=== PATIENT | female | born 1925 | race Caucasian/White ===

== ENCOUNTER 2017-01-18 10:12 | Emergency (ER) | payer MEDICARE, OTHER, BC ==
[2017-01-18 10:28] VITALS: TEMP 97.9; BMI 26.6
--- NOTE | 2017-01-18 11:09 | PDOC ---
Attending Attestation - Resident Resident Name: Citlaly Perezyazandylon - HPI HPI: 01/18/17 15:05 89 y/o female with h/o breast cancer and a history of lower extremity swelling in the past. Presents to ED requesting sonogram to r/o dvt of lower extremity 01/18/17 15:06 Pt seen in conjunction with the student, labs and sonogram reviewed, - Physicial Exam PE: 01/18/17 15:08 Pt is stable for dc home with out pt f/u with pcp, return to ED for trouble breathing, sob, pain in leg or as needed - Medical Decision Making 01/18/17 16:08 pt with no dvt, nl labs, pt to f/u with pcp, return to ED as needed, elevate leg at rest, return to ED for chest pain, sob, inc swelling of leg or as needed
--- NOTE | 2017-01-18 11:25 | PDOC ---
History of Present Illness - General Chief Complaint: Redness To Affected Area Stated Complaint: SWOLLEN LEG Time Seen by Provider: 01/18/17 11:08 History Source: Patient, Family Exam Limitations: Dementia (Patient able to give decent HPI but unable to ) - History of Present Illness Initial Comments: 01/18/17 12:38 89 year old female with history of dementia, breast cancer (s/p lumpectomy on tamoxifen), questionable LLE DVT, chronic LLE edema, HTN, urinary incontinence, and HLD presenting with 3 day history of worsening LLE swelling. She has history of a blockage in the LLE in the past but unsure of the exact diagnosis. She states that she was swimming a few weeks ago and noticed increased swelling in her leg after getting out of the pool. The swelling remained roughly stable but acutely worsened over the last few days. A physician friend of hers recommended a scan of her left leg so she came in today. She denies pain in the left lower extremity, but has had some difficulty ambulating over the last few days. Denies fevers, chest pain, nausea vomiting, GI or symptoms (urinary incontinence at baseline). She is not on any blood thinners and takes her other medications as prescribed. Her PCP is Dr. Lazar. Past History - Past Medical History Allergies/Adverse Reactions: Allergies Allergy/AdvReac Type Severity Reaction Status Date / Time No Known Drug Allergies Allergy Verified 01/18/17 10:24 Home Medications: Ambulatory Orders Gabapentin 300 mg PO DAILY 02/14/14 Simvastatin [Zocor -] 20 mg PO HS 02/14/14 Aspirin [Aspirin EC] 81 mg PO BID 08/04/14 Amoxicillin - [Amoxicillin 875mg Tablet -] 875 mg PO BID 01/18/17 Lisinopril [Prinivil] 10 mg PO BID 01/18/17 Memantine HCl [Namenda -] 10 mg PO BID 01/18/17 Mirabegron [Myrbetriq] 25 mg PO DAILY 01/18/17 Mirtazapine 7.5 mg PO HS 01/18/17 Quetiapine Fumarate [Seroquel -] 25 mg PO HS 01/18/17 Tamoxifen Citrate 20 mg PO DAILY 01/18/17 Disorders: Yes (RETENTION & OVER FLOW) HTN: Yes Hypercholesterolemia: Yes Other medical history: urinary inctontenance - Surgical History Abdominal Surgery: Yes (OVARY REMOVED) - Psycho/Social/Smoking Cessation Hx Anxiety: No Suicidal Ideation: No Smoking Status: No Smoking History: Never smoked Have you smoked in the past 12 months: No Number of Cigarettes Smoked Daily: 0 If you are a former smoker, when did you quit?: 30YRS AGO Information on smoking cessation initiated: No Hx Alcohol Use: No Drug/Substance Use Hx: No Substance Use Type: None Review of Systems - Review of Systems Constitutional: No: Chills, Diaphoresis, Fever, Loss of Appetite HEENTM: No: Blurred Vision, Cataracts Respiratory: No: Cough, Shortness of Breath, SOB with Exertion, Productive cough Cardiac (ROS): Yes: Edema (Left lower extremity edema), Lightheadedness. No: Chest Pain, Irregular Heart Rate, Palpitations, Chest Tightness ABD/GI: No: Abdominal Distended, Blood Streaked Bowels, Constipated, Diarrhea, Nausea, Poor Appetite : Yes: Incontinence Musculoskeletal: No: Back Pain, Gout Integumentary: Yes: Erythema. No: Bruising, Lesions (Left Lower Extremity Erythema) Neurological: Yes: Unsteady Gait, Other (Falls). No: Headache, Paresthesia Psychiatric: No: Change in Appetite *Physical Exam - Vital Signs Last Vital Signs Temp Pulse Resp BP Pulse Ox 97.9 F 85 16 134/94 100 01/18/17 10:24 01/18/17 10:24 01/18/17 10:24 01/18/17 10:24 01/18/17 10:24 - Physical Exam General Appearance: Yes: Nourished, Appropriately Dressed. No: Apparent Distress HEENT: positive: EOMI, CLAUDIA, Normal Voice Respiratory/Chest: positive: Lungs Clear, Normal Breath Sounds. negative: Chest Tender, Respiratory Distress, Accessory Muscle Use, Rales, Rhonchi, Stridor, Wheezing Cardiovascular: positive: Regular Rhythm, Regular Rate, Murmur (Holosystolic murmur) Gastrointestinal/Abdominal: positive: Normal Bowel Sounds, Flat, Soft. negative : Tender, Organomegaly Musculoskeletal: positive: Other (Left lower extremity swelling and erythema without drainage, induration, or other sign of infection. Fulls sensation with palpable left DPs and PTs slightly weaker then right side.) Extremity: positive: Normal Capillary Refill Integumentary: positive: Normal Color, Dry, Warm, Erythema (Left Lower Extremity Erythema) Neurologic: positive: Fully Oriented, Alert, Other (Word finding difficulty with poor recall) ED Treatment Course - LABORATORY CBC & Chemistry Diagram: 01/18/17 12:10 01/18/17 12:10 Medical Decision Making - Critical Care Time Total Critical Care Time (minutes): 30 Critical Care Statement: The care of this patient involved high complexity decision making to prevent further life threatening deterioration of the patient 's condition and/or to evalute & treat vital organ system(s) failure or risk of failure. - Medical Decision Making 01/18/17 13:12 89 year old female with chronic left lower extremity edema presenting with acutely worsened left lower extremity edema. She has questionable history of DVT in the past in the same extremity, this does not appear to be any sort of infection. Has full sensation, motor function, and pulses bilaterally across Lower extremities so compartment syndrome and general neuro-vascular compromise are less likely. Will get CBC, BMP, PT/INR, and LLE Doppler. 01/18/17 13:43 Labs WNL, Doppler not showing DVT. This is most likely along the spectrum of her chronic venous insufficiency in her left lower extremity. Touched base with Dr. Rodrigues (covering for Dr. Segovia) at 13:35 and updated him on the state of the patient. He was OK with sending patient home. Will send home with compression stockings and education on elevation of left lower extremity when patient is not ambulating. *DC/Admit/Observation/Transfer Diagnosis at time of Disposition: Edema of left lower extremity - Discharge Dispostion Disposition: HOME Condition at time of disposition: Improved Admit: No - Referrals Referrals: Easton Waddell MD [Primary Care Provider] - - Patient Instructions Printed Discharge Instructions: DI for Peripheral Edema, Unilateral Additional Instructions: You came in for swelling of your left lower leg. We scanned your leg and did not find a clot. We believe this is probably a long standing issue that you should discuss further with your primary care physician. We recommend that you wear a compression stocking on that side to help with the fluid. If you notice new weakness, numbness, or tingling in that leg specifically then please return to the ED to have it evaluated. Print Language: LUXEMBOURGISH - Attestations Physician Attestion: 01/18/17 13:11 I, Dr. Becky Perez, attest that this document has been prepared under my direction and personally reviewed by me in its entirety. I further attest, that it accurately reflects all work, treatment, procedures and medical decision -making performed by me.
[2017-01-18 12:28] LABS: MCH 30.2 pg (25.7-33.7); MCHC 32.6 g/dl (32.0-36.0); MEAN CELL VOLUME 92.6 fl (80-96); MEAN PLT VOLUME 8.9 fl (7.5-11.1); PLATELET COUNT 122 K/MM3 (134-434); RDW 14.6 % (11.6-15.6); WHITE BLOOD COUNT 8.1 K/mm3 (4.0-10.0)
[2017-01-18 12:42] LABS: INR 1.09 (0.82-1.09)
[2017-01-18 12:51] LABS: ANION GAP 5 (8-16); CO2 29 mmol/L (21-32); CREATININE 0.9 mg/dL (0.55-1.02); GLUCOSE,RANDOM 90 mg/dL (74-106)
[2017-01-18 14:19] VITALS: BP 165/67; PULSE 64
== END 2017-01-18 14:19 | disposition home or self-care (01) ==
LOC: JER 10:12
DX: R60.0 Localized edema (principal); I10 Essential (primary) hypertension; E78.00 Pure hypercholesterolemia, unspecified; N39.498 Other specified urinary incontinence; Z85.3 Personal history of malignant neoplasm of breast
CPT/HCPCS: 36415; 80048; 85027; 85610; 93971-TC; 99283-25

== ENCOUNTER 2017-03-08 18:33 | Emergency (ER) | payer MEDICARE, BC, OTHER ==
[2017-03-08 18:58] VITALS: BP 146/100; PULSE 90; TEMP 98.6; BMI 26.6
--- NOTE | 2017-03-08 18:58 | PDOC ---
History of Present Illness - General Chief Complaint: Injury Stated Complaint: FALL Time Seen by Provider: 03/08/17 18:57 Past History - Past Medical History Allergies/Adverse Reactions: Allergies Allergy/AdvReac Type Severity Reaction Status Date / Time No Known Drug Allergies Allergy Verified 03/08/17 18:42 Home Medications: Ambulatory Orders Gabapentin 300 mg PO DAILY 02/14/14 Simvastatin [Zocor -] 20 mg PO HS 02/14/14 Aspirin [Aspirin EC] 81 mg PO BID 08/04/14 Lisinopril [Prinivil] 10 mg PO BID 01/18/17 Quetiapine Fumarate [Seroquel -] 25 mg PO HS 01/18/17 Disorders: Yes (RETENTION & OVER FLOW) HTN: Yes Hypercholesterolemia: Yes Other medical history: ARTHRITIS. - Surgical History Abdominal Surgery: Yes (OVARY REMOVED) - Psycho/Social/Smoking Cessation Hx Anxiety: No Suicidal Ideation: No Smoking Status: No Smoking History: Never smoked Have you smoked in the past 12 months: No Number of Cigarettes Smoked Daily: 0 If you are a former smoker, when did you quit?: 30YRS AGO Hx Alcohol Use: No Drug/Substance Use Hx: No Substance Use Type: None *Physical Exam - Vital Signs Last Vital Signs Temp Pulse Resp BP Pulse Ox 98.6 F 90 20 146/100 98 03/08/17 18:42 03/08/17 18:42 03/08/17 18:42 03/08/17 18:42 03/08/17 18:42
--- NOTE | 2017-03-08 19:31 | PDOC ---
*Physical Exam - Vital Signs Last Vital Signs Temp Pulse Resp BP Pulse Ox 98.6 F 90 20 146/100 98 03/08/17 18:42 03/08/17 18:42 03/08/17 18:42 03/08/17 18:42 03/08/17 18:42 Medical Decision Making - Medical Decision Making 03/08/17 19:31 Pt seen by the Advanced Practice Provider under my direct supervision Ancillary studies reviewed I agree with plan as outlined by the Advanced Practice Provider ELLEN Cunningham
--- NOTE | 2017-03-08 20:51 | PDOC ---
History of Present Illness - General Chief Complaint: Injury Stated Complaint: FALL Time Seen by Provider: 03/08/17 18:57 History Source: Patient Exam Limitations: No Limitations - History of Present Illness Initial Comments: 03/08/17 20:54 89-year-old female with a history of hypertension presents to the emergency department complaining of left-sided low back pain. Patient states she misstepped on a broken sidewalk while the sun was shining in her eye causing her to fall forward. Patient states she broke her fall and landed on her left forearm. Patient denies any LOC, dizziness, lightheadedness, headaches, nausea/ vomiting, fever/chills, neck pains, chest pain, shortness of breath, abdominal pains, extremity numbness or tingling sensation. Last tetanus within 8 years Past History - Past Medical History Allergies/Adverse Reactions: Allergies Allergy/AdvReac Type Severity Reaction Status Date / Time No Known Drug Allergies Allergy Verified 03/08/17 18:42 Home Medications: Ambulatory Orders Gabapentin 300 mg PO DAILY 02/14/14 Simvastatin [Zocor -] 20 mg PO HS 02/14/14 Aspirin [Aspirin EC] 81 mg PO BID 08/04/14 Lisinopril [Prinivil] 10 mg PO BID 01/18/17 Quetiapine Fumarate [Seroquel -] 25 mg PO HS 01/18/17 Disorders: Yes (RETENTION & OVER FLOW) HTN: Yes Hypercholesterolemia: Yes Other medical history: ARTHRITIS. - Surgical History Abdominal Surgery: Yes (OVARY REMOVED) - Psycho/Social/Smoking Cessation Hx Anxiety: No Suicidal Ideation: No Smoking Status: No Smoking History: Never smoked Have you smoked in the past 12 months: No Number of Cigarettes Smoked Daily: 0 If you are a former smoker, when did you quit?: 30YRS AGO Hx Alcohol Use: No Drug/Substance Use Hx: No Substance Use Type: None Review of Systems - Review of Systems Able to Perform ROS?: Yes Comments:: 03/08/17 20:55 CONSTITUTIONAL: Absent: fever, chills, diaphoresis, generalized weakness, malaise, loss of appetite HEENT: Absent: rhinorrhea, nasal congestion, throat pain, throat swelling, difficulty swallowing, mouth swelling, ear pain, eye pain, visual Changes CARDIOVASCULAR: Absent: chest pain, loss of consciousness, palpitations, irregular heart rate, peripheral edema RESPIRATORY: Absent: cough, shortness of breath, dyspnea with exertion, orthopnea, wheezing, stridor, hemoptysis GASTROINTESTINAL: Absent: abdominal pain, abdominal distension, nausea, vomiting, diarrhea, constipation, melena, hematochezia GENITOURINARY: Absent: dysuria, frequency, urgency, hesitancy, hematuria, flank pain, genital pain MUSCULOSKELETAL: Left sided lumbar spine pain Absent: myalgia, arthralgia, joint swelling SKIN: Absent: rash, itching, pallor HEMATOLOGIC/IMMUNOLOGIC: Absent: easy bleeding, easy bruising, lymphadenopathy, frequent infections ENDOCRINE: Absent: unexplained weight gain, unexplained weight loss, heat intolerance, cold intolerance NEUROLOGIC: Absent: headache, focal weakness or paresthesias, dizziness, unsteady gait, seizure, mental status changes, bladder or bowel incontinence PSYCHIATRIC: Absent: anxiety, depression, suicidal or homicidal ideation, hallucinations. Is the patient limited Sami proficient: No *Physical Exam - Vital Signs Last Vital Signs Temp Pulse Resp BP Pulse Ox 98.6 F 90 20 146/100 98 03/08/17 18:42 03/08/17 18:42 03/08/17 18:42 03/08/17 18:42 03/08/17 18:42 - Physical Exam Comments: 03/08/17 20:55 GENERAL: Well developed, well nourished. Awake and alert. No acute distress. HEENT: Normocephalic, atraumatic. PERRLA, EOMI. No conjunctival pallor. Sclera are non- icteric. Moist mucous membranes. Oropharynx is clear. NECK: Supple. Full ROM. No JVD. Carotid pulses 2+ and symmetric, without bruits. No thyromegaly. No lymphadenopathy. CARDIOVASCULAR: Regular rate and rhythm. No murmurs, rubs, or gallops. Distal pulses are 2+ and symmetric. PULMONARY: No evidence of respiratory distress. Lungs clear to auscultation bilaterally. No wheezing, rales or rhonchi. ABDOMINAL: Soft. Non-tender. Non-distended. No rebound or guarding. No organomegaly. Normoactive bowel sounds. MUSCULOSKELETAL Normal range of motion at all joints. No bony deformities or tenderness. No CVA tenderness. EXTREMITIES: No cyanosis. No clubbing. No edema. No calf tenderness. SKIN: Warm and dry. Normal capillary refill. No rashes. No jaundice. NEUROLOGICAL: Alert, awake, appropriate. Cranial nerves 2-12 intact. No deficits to light touch and temperature in face, upper extremities and lower extremities. No motor deficits in the in face, upper extremities and lower extremities. Normoreflexic in the upper and lower extremities. Normal speech. Toes are down- going bilaterally. Gait is normal without ataxia. PSYCHIATRIC: Cooperative. Good eye contact. Appropriate mood and affect. ED Treatment Course - RADIOLOGY Radiology Studies Ordered: Category Date Time Status SPINE-LUMBAR SACRAL [RAD] Stat Radiology 03/08/17 19:20 Ordered Progress Note - Progress Note Progress Note: Patient agreed to an x-ray of her lumbar sacral spine but changed her mind and insists on being discharged AMA. *DC/Admit/Observation/Transfer Diagnosis at time of Disposition: Fall Qualifiers: Encounter type: initial encounter Qualified Code(s): W19.XXXA - Unspecified fall, initial encounter Back pain Qualifiers: Back pain location: low back pain Chronicity: acute Back pain laterality: left Sciatica presence: without sciatica Qualified Code(s): M54.5 - Low back pain Abrasion forearm Qualifiers: Encounter type: initial encounter Laterality: left Qualified Code(s): S50.812A - Abrasion of left forearm, initial encounter - Discharge Dispostion Disposition: HOME Condition at time of disposition: Stable Admit: No - Referrals Referrals: Myke Floyd MD [Primary Care Provider] - Lexa Mccullough MD [Staff Physician] - - Patient Instructions Printed Discharge Instructions: DI for Low Back Pain, DI for Abrasion, How to Prevent Falls Additional Instructions: Since you refused having your low back x-ray done prior to leaving the emergency department, please follow-up with your primary care physician or the orthopedic surgeon listed on your discharge/Dr. Mccullough Take Tylenol/Motrin as needed for pain
== END 2017-03-08 20:57 | disposition home or self-care (01) ==
LOC: JER 18:33 → SUPCPDRO 18:33 → JER 20:57
DX: S50.812A Abrasion of left forearm, initial encounter (principal); M54.5 Low back pain; I10 Essential (primary) hypertension; E78.00 Pure hypercholesterolemia, unspecified; M12.9 Arthropathy, unspecified; W18.39XA Other fall on same level, initial encounter; Y93.89 Activity, other specified; Y92.480 Sidewalk as the place of occurrence of the external cause; Y99.8 Other external cause status
CPT/HCPCS: 99281-25